=== PATIENT | male | born 1975 | race Caucasian/White ===

== ENCOUNTER → 2017-03-29 | Day surgery (SDC) | payer OTHER ==
[~2017-03-29] VITALS: Ht 175.3 cm; Wt 131.5 kg
--- NOTE | 2017-03-29 20:13 | Operative Report ---
Operative/Inv Procedure Report Surgery Date: 03/29/17 Name of Procedure: Placement of percutaneous spinal cord stimulator leads and right gluteal pulse generator, use of intraoperative fluoroscopy, intraoperative impedance testing and initial programming Pre-Operative Diagnosis: failed low back pain syndrome, chronic intractable low back pain Post-Operative Diagnosis: same Estimated Blood Loss: less than 50ml Surgeon/Senior Quality Assurance Engineer: Jono BRODERICK,Chika Thurston MD, [facility] Anesthesia: general endotracheal tube IV Fluids: replaced with crystalloid Implants: Nevro SCS leads and pulse generator Drains: none Specimens: none Complications: none Condition: stable Operative Indication: Patient is a 41yo male status post a L4-S1 instrumented fusion following a work injury with chronic intractable LBP now presents for a permanent SCS implant after a successful outpatient trial. Operative/Procedure Note Note: Pt was brought to the operating room. After appropriate patient identification and surgical time out, pt underwent smooth induction of general endotracheal anesthesia, was given 2g IV kefzol in preop prophylaxis, and was then carefully turned into a prone position on the Blake table taking care to ensure that all pressure pts were well padded. DVT prophylaxis was utilized throughout the case. The lumbar region was strip shaved, widely prepped and draped in usual sterile fashion with duraprep. The c-arm was sterilely draped into the field. The L3/4 level was identified fluoroscopically and a vertical midline skin incision was marked and infiltrated with local anesthetic. A second linear transverse incision was marked over the right gluteal region and infiltrated with local. Skin incisions were made with a 10 blade and carried down through subcutaneous tissue with the bovey and self retaining retractors were placed. A right gluteal region subcutaneous pocket was created with the bovey to accomodate the pulse generator and sized to fit a template. The midline incision was carried down to the lumbodorsal fascia and cerebellar retractors were placed. After confirming the correct entry level recruiter at L3/4, Dr. Thurston entered the field and placed two percutaneous SCS epidural leads with a loss of resistance technique and were advanced to the T8/9 level under fluoroscopic guidance. The lead placement was completed as close to the preop trial as possible. Once the leads were in position, I re-entered the field. Anchors were placed on each of the leads and they were tacked down to the fascia with 3-0 silk sutures until they were secure. The leads were further secured by tightening the anchor screws. The c-arm confirmed the lead placement after tacking down the anchors. The leads were then passed through a percutaneous tunnel using the tunneling device from the midline lumbar incision to the right gluteal pocket and then secured to the pulse generator. The pockets were then copiously irrigated with bacitracin irrigation. Meticulous hemostasis was ensured prior to wound closure. The pulse generator was placed in the gluteal pocket with excess lead wire looped deep to it. The lead attachment and impedance were tested and noted to be excellent. Preliminary programming was completed and then incisions were closed in layers with 2-0 and 3-0 vicryl and a running 4-0 vicryl subcuticular skin closure. Wounds were cleaned and dried. Steristrips and sterile occlusive dressings were placed. Pt was returned to the supine position, awakened, extubated and taken to PACU in stable condition. All sponge, needle and instrument counts were correct at the completion of the procedure X 3. Pt was noted to move all four extremities before leaving the OR. Discharge Disposition: PACU
--- NOTE | 2017-03-30 16:20 | RADIOLOGY REPORT ---
EXAMINATION: XR THORACOLUMBAR SPINE CLINICAL INFORMATION: DC stimulator placement in the OR. COMPARISON: None. TECHNIQUE: Intraoperative fluoroscopic spot views were provided to Dr. Mrurieta in the operating room for DC stimulator placement. FLUOROSCOPY TIME: 6 minutes and 38 seconds. IMAGES ARE PROVIDED FOR INTERPRETATION: 5 FINDINGS: Intraoperative fluoroscopic spot views demonstrate placement of 2 spinal stimulating electrodes projecting over the lower thoracic spine on the final image. IMPRESSION: Intraoperative fluoroscopic guidance was provided for placement of DC stimulators within the spine. Refer to the operative note for details.
== END ==
LOC: STS 03:43
DX: M54.5 Low back pain (principal); M96.1 Postlaminectomy syndrome, not elsewhere classified; I10 Essential (primary) hypertension; K21.9 Gastro-esophageal reflux disease without esophagitis; M51.06 Intervertebral disc disorders with myelopathy, lumbar region; G47.33 Obstructive sleep apnea (adult) (pediatric)
CPT/HCPCS: 72080; C1778; C1820; C9399; J0131; J0690; J2250